=== PATIENT | female | born 1980 ===

== ENCOUNTER 2024-12-27 08:00 | Day surgery (SDC) | payer OTHER ==
[2024-12-21 08:20] VITALS: BP 155/84
[2024-12-21 08:56] LABS: BASO % 0.3 % (0.1-1.2); EOS # 0.10 (0.04-0.54); EOS % 1.5 % (0.7-7.0); LYMPH # 2.17 (1.18-3.74); LYMPH % 32.1 % (19.3-53.1); MEAN PLATELET VOLUME 9.40 fl (9.4-12.4); MONO # 0.43 (0.24-0.82); MONO % 6.4 % (4.7-12.5); NEUT # 4.02 (1.56-6.13); NEUT % 59.4 % (34.0-71.1); RED CELL DISTRIBUTION WIDTH 13.6 % (11.6-14.4)
[2024-12-21 09:13] LABS: URINE APPEARANCE Clear; URINE BILIRRUBIN Negative (NEGATIVE); URINE BLOOD Negative; URINE COLOR Yellow; URINE GLUCOSE Negative (NEGATIVE); URINE KETONE Negative (NEGATIVE); URINE LEUKOCYTE Trace; URINE NITRATE Negative; URINE PROTEIN Negative (NEGATIVE); URINE UROBILINOGEN 0.2 E.U./dl
[2024-12-21 09:19] LABS: INR 1.03
[2024-12-21 09:21] LABS: URINE EPITHELIAL CELLS 12.6 uL (0.0-38.8); URINE RBC 2.3 uL (0.0-20.8); URINE WBC 62.9 uL (0.0-23.2)
[2024-12-21 09:29] LABS: URINE BACTERIA > 9821.5 uL (0.0-1933); URINE CAST 0.29 uL (0.0-1.40)
[2024-12-21 10:05] LABS: ALT/SGPT 25.0 U/L (12-78); AST/SGOT 11.0 U/L (15-37); BILIRUBIN TOTAL 0.47 mg/dL (0.3-1.2); BUN CREA RATIO 18.0 (7.0-25.0); CREATININE SERUM 0.78 mg/dL (0.55-1.02); GFR 80.99; GLOBULINA 3.8 G/DL (2.4-3.5); GLUCOSE FASTING 120.0 mg/dL (65-100); OSMOLALITY SERUM 289.0 MOSM/KG (275-295)
[~2024-12-27] VITALS: Ht 165.1 cm; Wt 131.5 kg
[2024-12-27] MEDS ORDERED: POVIDONE-IODINE 118 ML BOTT TOP ONE (09:18)
[2024-12-27] MEDS ORDERED: CEFTRIAXONE SODIUM 2,000 MG VIAL ONE (10:03)
[2024-12-27] MEDS ORDERED: KETOROLAC TROMETHAMINE 30 MG VIAL IV ONE (12:15)
[2024-12-27] MEDS ORDERED: ONDANSETRON HCL 2 MG/ML VIAL IV ONE (12:15)
[2024-12-27 21:37] VITALS: BP 94/55; O2SAT 100
== END 2024-12-27 17:05 | disposition home or self-care (01) ==
LOC: CIR.AMB 08:00
PROVIDERS: ATTEND Obstetrics & Gynecology
DX: C54.1 Malignant neoplasm of endometrium (principal); N93.8 Other specified abnormal uterine and vaginal bleeding; N84.0 Polyp of corpus uteri